=== PATIENT | female | born 1975 | race Caucasian/White ===

== ENCOUNTER → 2016-12-05 | Outpatient (REF) | payer OTHER ==
[~2016-12-05] MED LIST: /ONDA4TA OR; /SUCR1TA OR; AMBI5TAB PO; AUGM500T34 PO; CEPHULAC PO; MAGN400T5 PO; MILKSUS OR; MOTR200T44 PO; MULTIVIT PO; OYST500T OR; PERC5TAB8 PO; PRIL40CA OR; PROAAER IN; SENO8.6T5 OR; SINGULAIR PO; TRINESSA OR; VICO5TAB16 PO; VITA-113 PO; VITA10002 PO; VITAMIN D50000 UNT OR; ZANA2CAP PO; vit b 12 OR
[2016-12-05 18:22] LABS: PERCENT SATURATION 4.8 % (13.2-37.4)
[2016-12-05 18:41] LABS: REASON FOR REVIEW COMPREHENSIVE REVIEW
== END ==
LOC: M LAB REF 16:29
PROVIDERS: ATTEND Internal Medicine
DX: D51.9 Vitamin B12 deficiency anemia, unspecified (principal); D50.9 Iron deficiency anemia, unspecified; D61.818 Other pancytopenia

== ENCOUNTER → 2017-02-07 | Outpatient (REF) | payer OTHER | LOC: M LAB REF 10:16 | PROVIDERS: ATTEND Physician Assistant | DX: N39.0 Urinary tract infection, site not specified (principal) ==

== ENCOUNTER → 2017-03-13 | Outpatient (REF) | payer OTHER | LOC: M LAB REF 11:57 | PROVIDERS: ATTEND Internal Medicine | DX: N39.0 Urinary tract infection, site not specified (principal) ==